=== PATIENT | female | born 1945 | race Caucasian/White ===

== ENCOUNTER 2021-08-29 17:24 | Emergency (ER) | payer MEDICARE, OTHER ==
[~2021-08-29] VITALS: Ht 160 cm; Wt 80.7 kg
[2021-08-29] MEDS ORDERED: OXYC5CAP18 PO (17:40)
[2021-08-29] MEDS ORDERED: AMLO-212 PO (17:40)
[2021-08-29] MEDS ORDERED: MULT-594 PO (17:40)
[2021-08-29] MEDS ORDERED: PRAV20TA4 PO (17:40)
[2021-08-29] MEDS ORDERED: MONT10TA22 PO (17:40)
[2021-08-29] MEDS ORDERED: CYAN-51 PO (17:40)
[2021-08-29] MEDS ORDERED: LEVO100T10 PO (17:40)
[2021-08-29] MEDS ORDERED: ENAL20TA18 PO (17:40)
[2021-08-29] MEDS ORDERED: CHOL-9 PO (17:40)
--- NOTE | 2021-08-29 17:48 | NUR ---
PT IS IN ROOM #1B. DR ABBOTT EVALUATED THE PT.
[2021-08-29 18:12] LABS: CARBON DIOXIDE 21 mmol/L (21-32); CHLORIDE 103 mmol/L (98-107); CREATININE 0.7 mg/dL (0.6-1.3); GLUCOSE 107 mg/dL (74-106); POTASSIUM 3.4 mmol/L (3.5-5.1); UREA NITROGEN, BLOOD 12 mg/dL (7-18)
[2021-08-29 18:13] LABS: HEMATOCRIT 42.5 % (31.2-41.9); MEAN CORPUSCULAR HEMOGLOBIN 29.5 uug (24.7-32.8); MEAN CORPUSCULAR VOLUME 86.8 fL (75.5-95.3); PLATELET COUNT (AUTO) 214 K/uL (179-408)
[2021-08-29 18:17] LABS: ETHANOL < 3 MG/DL (0-0)
[2021-08-29 18:20] LABS: ACETAMINOPHEN < 2.0 ug/mL (10-30); ALANINE AMINOTRANSFERASE 25 U/L (14-59); ALKALINE PHOSPHATASE 63 U/L (50-136); ASPARTATE AMINOTRANSFERASE 14 U/L (15-37); BILIRUBIN,DIRECT 0.1 mg/dL (0.0-0.2); BILIRUBIN,TOTAL 0.5 mg/dL (0.2-1.0); TOTAL PROTEIN, SERUM 7.5 g/dL (6.4-8.2)
[2021-08-29 18:56] LABS: THYROID STIMULATING HORMONE 0.879 mIU/mL (0.358-3.740)
--- NOTE | 2021-08-29 19:05 | NUR ---
Pt back from CT
[2021-08-29] MEDS ORDERED: IV NORMAL SALINE 1000 ML BAG IV ONE (20:15)
[2021-08-29 20:21] LABS: *BILIRUBIN,URIN 1+ (NEGATIVE); *BLOOD, URINE 2+ (NEGATIVE); *CLARITY,URINE CLEAR (CLEAR); *COLOR,URINE YELLOW (YELLOW); *KETONES,URINE 3+ (NEGATIVE); *UROBILINOGEN,URINE 0.2 E.U./dl (NORMAL); LEUKOCYTE ESTERASE ,URINE NEGATIVE (NEGATIVE); NITRITE, URINE NEGATIVE (NEGATIVE); UGLUCOSE NEGATIVE (NEGATIVE)
[2021-08-29] MEDS ORDERED: ACETAMINOPHEN 325 MG TABLET PO ONE (20:30)
[2021-08-29] MEDS ORDERED: IV LACTATED RINGERS SOLUTION 1,000 ML BAG IV ONE (20:30)
[2021-08-29] MEDS ORDERED: ACETAMINOPHEN 325 MG TABLET ONE (20:35)
[2021-08-29 20:41] LABS: BACTERIA,URINE FEW /HPF (NONE SEEN); CALCIUM OXALATE CRYSTALS,UR MODERATE /HPF (NONE SEEN); SQUAMOUS EPITHELIAL CELL,UR MODERATE /HPF (NONE SEEN); WBC,URINE 0-3 /HPF (0-3)
[2021-08-29 20:47] LABS: *AMPHETAMINE, URINE NEGATIVE (NEGATIVE); *CANNABINOID, URINE NEGATIVE (NEGATIVE); *COCCAINE, URINE NEGATIVE (NEGATIVE); *OPIATE, URINE NEGATIVE (NEGATIVE); *PHENCYCLIDINE SCREEN,URINE NEGATIVE (NEGATIVE)
--- NOTE | 2021-08-29 20:50 | NUR ---
SPOKE WITH SAIGE FROM [facility] NOTIFIED THAT PT IS BEING DISCHARGE, VERBALIED UNDERSTANDING.
--- NOTE | 2021-08-29 21:00 | NUR ---
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 Spoke with Jared GONZALEZ 15-20min.
--- NOTE | 2021-08-29 21:10 | NUR ---
CALLED [facility] FOR TRANSPORTATION, SPOKE WITH HAYDEN PROVIDED ETA OF 15 MINS.
--- NOTE | 2021-08-29 21:31 | NUR ---
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
--- NOTE | 2021-08-29 21:48 | NUR ---
Patient discharged to [facility] in stable condition. Written and verbal after care instructions given. Patient verbalizes understanding of instructions. Stressed follow up or return to ER for worsening s/s. Steady gait. Denies pain or discomfort upon D/C. No changes in LOC. Pt left with [facility] [address].
[2021-08-29 21:50] VITALS: BP 152/70
--- NOTE | 2021-08-29 22:00 | NUR ---
IV NS 1L started at 2010 completed end time 2110 IV LR 1L started at 2016 completed endtime 2116
== END 2021-08-29 21:51 ==
LOC: ER 17:24
DX: R53.1 Weakness (principal); E86.0 Dehydration; Z20.822 Contact with and (suspected) exposure to COVID-19; R00.0 Tachycardia, unspecified; I44.0 Atrioventricular block, first degree; Z88.6 Allergy status to analgesic agent; Z88.2 Allergy status to sulfonamides; Z88.8 Allergy status to other drugs, medicaments and biological substances; J45.909 Unspecified asthma, uncomplicated; I25.10 Atherosclerotic heart disease of native coronary artery without angina pectoris; E78.5 Hyperlipidemia, unspecified; E03.9 Hypothyroidism, unspecified; I10 Essential (primary) hypertension; G62.9 Polyneuropathy, unspecified; Z79.890 Hormone replacement therapy
CPT/HCPCS: 36415; 70450; 71045; 80048; 80076; 80299; 80307; 80320; 81001; 82140; 83605; 84443; 84484 ×2; 85025; 85730; 87040 ×2; 87086; 87426; 93005; 99285; J7120; A4663; G0480; J7030